=== PATIENT | female | born 1945 | race Caucasian/White ===

== ENCOUNTER 2020-04-12 12:45 | Outpatient (CLI) | payer MEDICARE, SELFPAY ==
--- NOTE | ~2020-04-12 | CT_ITS ---
EXAMINATION: CTA brain carotid EXAM DATE: 04/12/2020 14:28 INDICATION: Episodic headaches. TECHNIQUE: Noncontrast head CT. Spiral CTA of the carotid arteries was performed with intravenous i njection 100 cc of Omnipaque 350. Axial, coronal, sagittal reformatted images reviewed. Additional r eformatted images created on dedicated 3-D workstation. NASCET comparable standard used to assess th e degree of arterial stenosis. Spiral CT angiogram cerebral arteries performed with the same intrave nous injection of contrast. Source images of the brain CTA transferred to dedicated workstation for 3 -D rotational image creation. Coronal, sagittal maximum intensity pixel images also reviewed. The d ose-length product (DLP) for this examination was 1546.93 mGy-cm. The exposure was tailored accordi ng to patient size, and iterative reconstruction (ASIR) was used as additional dose reduction techniq ue. There is no prior study for comparison. FINDINGS: The aortic arch is unremarkable. There is 0% carotid stenosis bilaterally. Carotid siphons are unremarkable. The right vertebral artery is dominant. There is no carotid or vertebral basilar a rterial dissection or fibromuscular dysplasia. There are no cerebral artery aneurysms. 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 The sagittal, transverse and sigmoid sinuses enhance normally, no venous sinus thrombosis. Internal cerebral veins also enhance normally. There is no acute intraparenchymal hemorrhage. No evidence of intraparenchymal brain mass lesion. N o evidence of acute infarction. There is no mass effect or midline shift. There is no obstructive hyd rocephalus suspected. There are no extra-axial collections. There are no calvarial acute fractures. Right-sided cataract surgery. IMPRESSION: 1. No cervical arterial dissection or cerebral artery aneurysm. 2. No carotid stenosis. Reviewed, dictated and finalized at location A.
--- NOTE | ~2020-04-12 | MR_ITS ---
EXAMINATION: MR brain/brain stem wo con EXAM DATE: 04/12/2020 14:01 INDICATION: Episodic headaches. TECHNIQUE: Magnetic resonance imaging (MRI) of the brain/brain stem obtained without contrast. Sagitt al T1, axial diffusion, gradient echo (T2*), T1, T2, FLAIR sequences obtained. There is no prior st udy for comparison. FINDINGS: There are no areas of restricted diffusion to suggest acute infarction. There is no acute hemorrhage seen on the T2*, a hemosiderin sensitive sequence. No intraparenchymal brain mass lesion. There is mild periventricular and subcortical T2/FLAIR signal hyperintensity, nonspecific but probab ly related to small vessel ischemic disease (microangiopathy). There is mild prominence of the sulc i and ventricles related to cerebral atrophy. There are no extra-axial collections. Flow voids are seen in the cerebral arteries on the T2-weighted sequences consistent with their expected patency. The orbits are unremarkable. Soft tissue is unremarkable. IMPRESSION: 1. No acute intracranial findings. 2. Chronic age related findings. Reviewed, dictated and finalized at location A.
[2020-04-13 14:14] LABS: Estimated Glomerular Filt Rate > 60
== END 2020-04-12 12:46 | disposition home or self-care (01) ==
PROVIDERS: PCP Internal Medicine; Visit Provider Psychiatry & Neurology Neurology
DX: R51 Headache (principal)
CPT/HCPCS: 36415; 70496; 70498; 70551; Q9967

== ENCOUNTER 2024-01-07 11:55 | Outpatient (CLI) | payer OTHER, SELFPAY ==
--- NOTE | 2024-01-07 13:17 | ECG_ITS ---
SEE SCANNED COPY FOR CONFIRMED REPORT MTDD
[2024-01-07 13:31] LABS: Basophils Percent Auto 0.7 % (0.2-1.2); Eosinophils Absolute Auto 0.1 K/mm3 (0-0.3); Eosinophils Percent Auto 1.5 % (0-4.4); Hematocrit 37.7 % (37.0-47.0); Lymphocytes Absolute Auto 2.01 K/mm3 (0.9-3.2); Lymphocytes Percent Auto 32.9 % (18.3-44.2); Mean Corpuscular HGB Conc 34.5 g/dl (32-36); Mean Corpuscular Hemoglobin 36.7 pg (26-34); Mean Corpuscular Volume 106.5 fl (80-100); Mean Platelet Volume 9.7 fl (7.4-10.4); Monocytes Absolute Auto 0.6 K/mm3 (0.1-0.6); Neutrophils Absolute Auto 3.4 K/mm3 (1.3-6.7); Neutrophils Percent Auto 55.9 % (45.5-73.1); Platelet Count Result 398 k/mm3 (150-375); Red Blood Count 3.54 M/mm3 (4.2-5.4); Red Cell Distribution Width 13.6 % (11.5-14.5); White Blood Count 6.1 K/mm3 (4.5-10.0)
[2024-01-07 13:40] LABS: Alanine Aminotransferase 20 U/L (6-35); Albumin Level 4.9 g/dL (3.5-5.1); Alkaline Phosphatase 59 U/L (38-126); Anion Gap 7 mmol/L (4-12); Aspartate Amino Transferase 31 U/L (14-36); Bilirubin,Total 0.7 mg/dL (0.2-1.3); Blood Urea Nitrogen 28 mg/dL (7-17); Calcium 10.3 mg/dL (8.4-10.2); Carbon Dioxide 28 mmol/L (22-30); Chloride 104 mmol/L (98-107); Estimated Glomerular Filt Rate 48; Glucose 100 mg/dL (65-110); Potassium 4.4 mmol/L (3.4-5.0); Sodium 139 mmol/L (137-145)
[2024-01-07 13:50] LABS: Prothrombin Time 13.3 Seconds (11.1-14.7)
[2024-01-07 15:51] LABS: Platelet Estimate Increased (Adequate)
[2024-01-07 15:52] LABS: Macrocytosis 1+ (NORMAL); Schistocytes None Seen
== END 2024-01-07 11:56 | disposition home or self-care (01) ==
LOC: ANHSURGERY 12:00
PROVIDERS: PCP Internal Medicine; Visit Provider Urology
DX: N81.4 Uterovaginal prolapse, unspecified (principal); Z01.818 Encounter for other preprocedural examination
CPT/HCPCS: 36415; 80053; 85025; 85610; 85730; 86850; 86900; 86901; 93005

== ENCOUNTER 2024-01-14 02:27 | Day surgery (SDC) | payer OTHER, SELFPAY ==
[2024-01-07 12:32] VITALS: BP 112/59; PULSE 95; RESP 16; TEMP 37; O2SAT 98; BMI 26.9
--- NOTE | 2024-01-07 12:54 | PC.NURSE ---
Report to the Outpatient Waiting Room, entrance under the green pavilion located off [facility], at time _10:00AM on date __01/14/24 . Planned Procedure Time: __12:00PM . Time changes happen often and if your time is changed the preop area will call you the afternoon before. - You and your visitor will be asked to self-screen and do not enter if you have any COVID symptoms. - A mask is optional within the hospital at this time. Patients may have clear liquids (water, carbonated beverages, clear teas, apple juice) until 3 hours prior to surgery with a maximum of 20 ounces. - No food from midnight until time of surgery. Take the following medications with a SIP of water the morning of surgery: ____LEVOTHYROXINE DO NOT STOP ANY OF YOUR OTHER PRESCRIPTION MEDICATIONS PRIOR TO SURGERY ?EXCEPT THE FOLLOWING Medications to discontinue per physician ___HOLD IBUPROFEN 7 DAYS PRE-OP PER DR CURRIE- LAST DOSE 01/06/24 HOLD ALL VITAMINS/SUPPLEMENTS 3 DAYS PRE-OP PER ANESTHESIA- LAST DOSE 01/10/24 Please no make-up, nail czech, hairspray, perfume, deodorant, or body powder the day of surgery. No jewelry (including any body piercings) or valuables the day of surgery, leave them at home. Please take a shower or bath the night before, or the morning of, surgery with an antibacterial soap. Wear comfortable, loose fitting clothing. - Jewelry must be removed prior to entering the operating room. Rings and piercings that are not removed may be cut off. - The hospital will not accept responsibility for valuables. - Please leave all valuables, including medications, at home the day of surgery. If you are going home after surgery, a licensed swing driver must drive you home. - NO public transportation without another adult if you receive anesthesia. - We recommend that an adult stay with you for 24 hours following discharge. - We also recommend that you do not drive, make important decision, drink alcoholic beverages, or take any drugs that were not prescribed by your health care provider for at least 24 hours after your discharge time. Follow any additional instructions given to you from your surgeon. If you or anyone in your household have experienced Covid symptoms in the past week, please notify your surgeon or the nurse liaison at the phone number below for possible testing. Telephone instructions given to ___PATIENT and asked if any additional questions and then verbalized understanding. Patient advised to call surgeon office or pre surgery nurse liaison [phone] if any additional questions.
--- NOTE | 2024-01-09 07:24 | PM.IMHP ---
H&P: HPI History of Present Illness Date/Time: 01/09/24 07:24 Chief Complaint: Uterine prolapse Narrative: 69 old female with 2nd-3rd degree prolapse and cystocele and stress incontinence admitted for robotic supracervical hysterectomy bilateral salpingo-oophorectomy. She will also undergo robotic sacral colpopexy with Dr. Robles possible sling. Risks and benefits reviewed including minutes was , aspiration bleeding transfusion perforation injury to bowel, bladder, ureters, or other internal organs with need for open laparotomy she received the [employer] handout entitled hysterectomy as well as the diff and she handout. She had all questions answered and was encouraged to watch the procedure on the Internet. She had all questions answered and asked to proceed PMFSH Social History Social History Smoking status: Never smoker Alcohol intake: current Living arrangements: alone Spiritual care concerns: No Meds Home Medications and Allergies Home Medications Medication Instructions Recorded Confirmed Type Lactobacillus 40-Bifidobact 60 cap PO DAILY 01/07/24 01/07/24 History 3-S.thermophilus 100 billion cell capsule (Probiotic) cholecalciferol (vitamin D3) 25 4 spray sublingual DAILY 01/07/24 01/07/24 History mcg/spray(1,000 unit/spray) subling spray, susp cranberry 500 mg capsule 500 mg PO DAILY 01/07/24 01/07/24 History cyanocobalamin (vitamin B-12) 25 25 mcg PO DAILY 01/07/24 01/07/24 History mcg tablet cyclosporine 0.05 % eye drops in a 1 drp EACH EYE Q12H 01/07/24 01/07/24 History dropperette (Restasis) fluticasone propionate 50 1 spray intranasal DAILY 01/07/24 01/07/24 History mcg/actuation nasal spray,suspension hydroxyurea 500 mg capsule 500 mg PO HS 01/07/24 01/07/24 History ibuprofen 200 mg capsule 400 mg PO Q6H PRN Pain 01/07/24 01/07/24 History levothyroxine 75 mcg tablet 75 mcg PO QAM 01/07/24 01/07/24 History magnesium 3 tablet PO DAILY 01/07/24 01/07/24 History multivitamin 3 tablet PO DAILY 01/07/24 01/07/24 History turmeric 400 mg capsule 400 mg PO DAILY 01/07/24 01/07/24 History Allergies Allergy/AdvReac Type Severity Reaction Status Date / Time CATS Allergy Mild ITCHY Uncoded 01/07/24 12:07 THROAT, SNEEZING, RUNNY NOSE Exam Const: General: cooperative, healthy appearing and comfortable Nutritional Appearance: average body habitus Orientation/consciousness: oriented to person, oriented to place and oriented to time Resp: Effort & Inspection: normal respiratory effort Cardio: Rate: regular rate Rhythm: regular rhythm Heart sounds: S1 normal heart sound present and S2 normal heart sound present GI: Inspection: normal to inspection : Speculum Exam - Vagina: normal appearance of the vagina (Third degree prolapse seen) Bimanual exam- vagina & uterus: soft Bimanual Exam- Adnexa, other: normal adnexae Assessment and Plan Assessment and plan (1) Uterine prolapse: Code(s): N81.4 - Uterovaginal prolapse, unspecified Status: Acute Plan Robotic supracervical vaginal hysterectomy and bilateral salpingo-oophorectomy Dr. Robles will proceed with sacral colpopexy and sling and as needed
--- NOTE | 2024-01-11 11:08 | P.HP_ITS ---
H&P: HPI History of Present Illness Date/Time: 01/11/24 11:08 Chief Complaint: Pelvic organ prolapse Narrative: She has pelvic organ prolapse without stress incontinence. Presents for surgical intervention Review of Systems Review of Systems: All systems reviewed & are unremarkable except as noted in HPI and below PMFSH Social History Social History Smoking status: Never smoker Alcohol intake: current Living arrangements: alone Spiritual care concerns: No Meds Home Medications and Allergies Home Medications Medication Instructions Recorded Confirmed Type Lactobacillus 40-Bifidobact 60 cap PO DAILY 01/07/24 01/07/24 History 3-S.thermophilus 100 billion cell capsule (Probiotic) cholecalciferol (vitamin D3) 25 4 spray sublingual DAILY 01/07/24 01/07/24 History mcg/spray(1,000 unit/spray) subling spray, susp cranberry 500 mg capsule 500 mg PO DAILY 01/07/24 01/07/24 History cyanocobalamin (vitamin B-12) 25 25 mcg PO DAILY 01/07/24 01/07/24 History mcg tablet cyclosporine 0.05 % eye drops in a 1 drp EACH EYE Q12H 01/07/24 01/07/24 History dropperette (Restasis) fluticasone propionate 50 1 spray intranasal DAILY 01/07/24 01/07/24 History mcg/actuation nasal spray,suspension hydroxyurea 500 mg capsule 500 mg PO HS 01/07/24 01/07/24 History ibuprofen 200 mg capsule 400 mg PO Q6H PRN Pain 01/07/24 01/07/24 History levothyroxine 75 mcg tablet 75 mcg PO QAM 01/07/24 01/07/24 History magnesium 3 tablet PO DAILY 01/07/24 01/07/24 History multivitamin 3 tablet PO DAILY 01/07/24 01/07/24 History turmeric 400 mg capsule 400 mg PO DAILY 01/07/24 01/07/24 History Allergies Allergy/AdvReac Type Severity Reaction Status Date / Time CATS Allergy Mild ITCHY Uncoded 01/07/24 12:07 THROAT, SNEEZING, RUNNY NOSE Exam Narrative: No acute distress Normal breathing Alert orient x3 Anterior wall +3. [place] at -0 Assessment and Plan Assessment and plan (1) Uterine prolapse: Code(s): N81.4 - Uterovaginal prolapse, unspecified Status: Acute Assessment and Plan: Robotic colpopexy understands risks of bleeding, infection, damage surrounding organs, damage to urinary tract, recurrence of prolapse, postoperative voiding dysfunction including incontinence and retention, hip and leg pain, dyspareunia. Agrees to proceed
[2024-01-14] VITALS (10 sets, daily range): BP systolic 114–138; BP diastolic 53–69; PULSE 71–91; RESP 11–18; TEMP 36.1–36.9; O2SAT 93–100
--- NOTE | 2024-01-14 04:41 | WPDHPUPDATE1 ---
History and Physical Update Update Date/Time: 01/14/24 04:41 History and Physical has been reviewed, including an updated exam of the patient. There are NO changes in the patient's condition. Risks, benefits, and alternatives have been discussed and questions answered. Patient agrees to proceed with procedure.
--- NOTE | 2024-01-14 06:47 | WPDHPUPDATE1 ---
History and Physical Update Update Date/Time: 01/14/24 06:47 History and Physical has been reviewed, including an updated exam of the patient. There are NO changes in the patient's condition. Risks, benefits, and alternatives have been discussed and questions answered. Patient agrees to proceed with procedure.
[2024-01-14] MEDS: ACETAMINOPHEN 500 MG TABLET 1000 MG PO (09:32)
[2024-01-14] MEDS: KETOROLAC 15 MG/ML VIAL (*BKC) IV PUSH ×2 (10:14→15:53)
[2024-01-14] MEDS: LACTATED RINGERS 1,000 ML 30 ML IV CONT ×2 (10:14→14:08)
--- NOTE | 2024-01-14 11:14 | P.PNAN_ITS ---
Anes - Initial Pre Proc Eval Procedure: Operation Date: 01/14/24 11:15 Proposed Procedures p Robotic Sacrocolpopexy, Urethral Sling - Steven Robles MD s Robotic Assisted Supracervical Hysterectomy with Bilateral Salpingo- oophorectomy - Xavi Farmer MD Date/Time: 01/14/24 11:14 Surgeon: Steven Robles MD Pre Op Diagnosis: uterovaginal prolapse, cystocele Patient Data Age: 78 Gender: F Height: 1.5 m Weight: 60 kg Last Vital Signs Temp 97 F L 01/14/24 09:38 Pulse 91 01/14/24 09:38 Resp 16 01/14/24 09:38 BP 123/61 01/14/24 09:38 Pulse Ox 99 01/14/24 09:38 O2 Del Method Room Air 01/14/24 09:38 Allergies Allergy/AdvReac Type Severity Reaction Status Date / Time CATS Allergy Mild ITCHY Uncoded 01/14/24 09:30 THROAT, SNEEZING, RUNNY NOSE Home Medications Medication Instructions Recorded Confirmed Type Lactobacillus 40-Bifidobact 60 cap PO DAILY 01/07/24 01/07/24 History 3-S.thermophilus 100 billion cell capsule (Probiotic) cholecalciferol (vitamin D3) 25 4 spray sublingual DAILY 01/07/24 01/07/24 History mcg/spray(1,000 unit/spray) subling spray, susp cranberry 500 mg capsule 500 mg PO DAILY 01/07/24 01/07/24 History cyanocobalamin (vitamin B-12) 25 25 mcg PO DAILY 01/07/24 01/07/24 History mcg tablet cyclosporine 0.05 % eye drops in a 1 drp EACH EYE Q12H 01/07/24 01/07/24 History dropperette (Restasis) fluticasone propionate 50 1 spray intranasal DAILY 01/07/24 01/07/24 History mcg/actuation nasal spray,suspension hydroxyurea 500 mg capsule 500 mg PO HS 01/07/24 01/07/24 History ibuprofen 200 mg capsule 400 mg PO Q6H PRN Pain 01/07/24 01/07/24 History levothyroxine 75 mcg tablet 75 mcg PO QAM 01/07/24 01/07/24 History magnesium 3 tablet PO DAILY 01/07/24 01/07/24 History multivitamin 3 tablet PO DAILY 01/07/24 01/07/24 History turmeric 400 mg capsule 400 mg PO DAILY 01/07/24 01/07/24 History Patient hx anesthesia problems: post op nausea/vomiting Family hx anesthesia problems: none Results Review: All pre-operative results and documents have been reviewed as part of the pre-operative evaluation. [facility] Social History Social History Smoking status: Never smoker Alcohol intake: current Living arrangements: alone Spiritual care concerns: No Anes - Eval Final PreProcedure Day of Procedure 01/14/24 11:14 Patient weight: normal Heart: regular rate and rhythm Lungs: clear to auscultation Airway: Mallampati scale class II Neurological: alert and oriented Last oral intake: >/= 8 hours ASA classification: III Emergent: no Anesthetic plan: proceed Anesthesia type and monitoring: general ETT and standard monitoring Results Review: All pre-operative results and documents have been reviewed as part of the pre- operative evaluation. Informed Consent: The patient's anesthetic plan and its attendant risks and benefits were discussed with the patient/family/POA. Questions were solicited and answers provided to the satisfaction of the patient/family/POA.
[2024-01-14] MEDS: SCOPOLAMINE 1 MG PATCH 1 PATCH TRANSDERM (11:15)
[2024-01-14] MEDS: ceFAZolin 2 GM/D5W 50 ML 2 GM/50 ML BAG IVPB (11:18)
[2024-01-14] MEDS: metroNIDAZOLE 500 MG/ISO 100ML 500 MG/100 ML BAG 100 MG IVPB ×2 (11:30→17:47)
[2024-01-14] MEDS: BUPIVACAINE/EPINEPHRINE 0.5% 30 ML VIAL INFILTRATE (11:59)
--- NOTE | 2024-01-14 12:18 | W.PM.PROC2 ---
Procedure Note - Detailed Date of Procedure 01/14/24 Pre-op Diagnosis uterovaginal prolapse, cystocele Post-op Diagnosis Same Procedure Performed Robotic supracervical hysterectomy and bilateral salpingo-oophorectomy Surgeon Xavi Farmer MD Anesthesia General Indications 78-year-old female with uterine prolapse and cystocele Findings prolapse uterus. Moderate size benign-appearing right ovarian cyst. Description of Procedure Patient was prepped and draped in the normal sterile fashion placed in the dorsal lithotomy position. Under excellent general trach anesthesia weighted speculum placed in the posterior fornix of vagina. Anterior lip of the cervix grasped with single-tooth tenaculum. Man's cannula inserted attached to the single-tooth to be used later for uterine manipulation. After emptying the bladder clear urine with a 16 Far[place] catheter the weighted speculum was removed the gloves were changed. Dr. Robles proceeded to the patient please see that operative report for full details. Attention was turned to the skilled nursing facility counselor. The left round ligament was grasped, burned, cut. Anteriorly a bladder flap was formed by sharply dissecting the peritoneum and reflecting the bladder caudally away from the cervix and uterus. This was brought to the opposite round ligament was clamped, burned, cut. The right infundibulopelvic structure was skeletonized to remove the right ovary and tube clamped, burned, cut and brought to the level of previously round ligament. In similar fashion and there appeared to be only in the above ovarian tissue on the left. The infundibulopelvic structure was skeletonized clamping burning cutting ovary this a level of previously cut round ligament. The cardinal broad ligaments on left proceeded skeletonized clamping burning and cutting and drainage down lateral edge until the uterine vessels could be seen on the left these were individually clamped, burned, cut. Similarly on the right, the end cardinal broad ligaments were skeletonized clamping burning cutting bringing this down the lateral edge of the uterus and cervix until the large uterine vessel could be seen on the right these were individually clamped, burned, cut. A supracervical incision made in the uterus ovaries and tubes placed in an Endo-Catch. Blood loss was 25cc of this port. Dr. Shultz proceeded with the sacral colpopexy and his portion. Estimated Blood Loss 25 Drains No Packing No Pathology Yes Complications No immediate complications Condition Stable Disposition No change
--- NOTE | 2024-01-14 13:56 | P.OP_ITS ---
Procedure Note - Detailed Date of Procedure 01/14/24 Pre-op Diagnosis uterovaginal prolapse, cystocele Post-op Diagnosis Same Procedure Performed Robotic assisted laparoscopic sacral colpopexy Cystoscopy Surgeon Steven Robles MD Anesthesia General Indications A woman with uterine prolapse without stress incontinence. She desires surgical correction. She is here for the above. She understands risks of bleeding, infection, diskitis, damage to surrounding organs, bowel injury, bowel obstruction, mesh related complications including exposure and extrusion, postoperative voiding dysfunction including incontinence and retention, need for ancillary procedures, dyspareunia, recurrence of prolapse, and other perioperative intraoperative postoperative complications. She agrees to proceed. Findings See below Description of Procedure She was correctly identified. Informed consent obtained. She from the operating room. She was given general anesthesia. She was given appropriate perioperative antibiotics. She was placed a low lithotomy position. Pressure points were padded. A time-out performed. I marked out the skin 3 fingerbreadths cephalad to the umbilicus. I anesthetized the skin. I incised the skin. I dissected down to the fascia. I grasped the fascia with Ledy clamps. I entered the fascia sharply in a Sales type technique. I placed sutures for later fascial closure. I placed a midline trocar. I examined the abdomen. There is no sign of any injury. Under direct vision I placed 2 additional trocars in the right upper quadrant and 2 additional trocars the left upper quadrant. She was placed in steep Trendelenburg. The robot was docked. Her dirt bike racer completed their portion of the procedure. Please see that operative report for details. I then sat at the console. The Sizer in the vagina created plane on the anterior and posterior vaginal wall. I took great care not to injure the vagina, bladder, or rectum. I introduced the mesh into the abdomen. I sewed the anterior leaflet of mesh on the anterior vaginal wall. I sewed the posterior leaflet of mesh on the posterior vaginal wall. This was done with several sutures of 2 0 [place]. I reflected the colon laterally. I opened the posterior peritoneum over the sacral promontory. I carried this into the cul-de-sac. I freed up the edges for later retroperitonealization. I located the anterior longitudinal ligament the sacrum. I cleaned off all fatty tissues. I then tensioned my mesh appropriately. I did a vaginal exam the bedside. I assured prolapse reduction without undue tension. I then sewed the proximal leaflet of mesh onto the anterior longitudinal ligament of the sacrum with several sutures of 2 0 [place]. I then used a 2 0 Monocryl to completely and meticulously retroperitonealized all mesh. I allowed the colon to go back to its normal anatomic location. There is no sign of any impingement. The specimen was then removed. All ports removed. Fascia was tied down. An additional suture was placed fully close the fascia. Skin was closed with Monocryl and surgical glue. I then performed cystoscopy. There was no tumors or surgical artifact. Both ureters were seen to excrete clear yellow urine. There is no surgical artifact in the bladder or urethra. I cut the excess sling material. Close incision with glue. She was awakened and transferred to PACU in stable condition. Implants Sacral colpopexy mesh Estimated Blood Loss 25 Packing No Pathology None sent Complications No immediate complications Condition Stable Disposition PACU
[2024-01-14] MEDS: fentaNYL CITRATE INJ (*CRX) 100 MCG/2 ML VIAL 25 MCG IV PUSH (14:50)
--- NOTE | 2024-01-14 15:37 | OBPPTRN ---
Patient transferred to post room #287 via stretcher. Oriented to unit, room, information board, rooming in, admission packet and security measures. Patient verbalizes understanding.
[2024-01-14] MEDS: ACETAMINOPHEN 325 MG TABLET 650 MG PO (15:54)
[2024-01-14] MEDS: KCL 20 MEQ/D5/0.45% SOD CHL 1,000 ML 100 ML IV CONT (15:54)
[2024-01-14] MEDS: HYDROcodone/acetaminophen (*CRX) 5-325 MG TABLET 1 TAB PO (17:51)
[2024-01-14] MEDS: ceFAZolin 1 GM/NS 50 ML 1 GM/50 ML BAG IVPB (18:59)
[2024-01-14] MEDS: cycloSPORINE 0.4 ML OPHTH SOLUTION 1 DROP EACH EYE (21:06)
[2024-01-15 00:02] VITALS: BP 95/59; PULSE 72; RESP 18; TEMP 36.8; O2SAT 98
[2024-01-15] MEDS: metroNIDAZOLE 500 MG/ISO 100ML 500 MG/100 ML BAG 100 MG IVPB (02:03)
[2024-01-15] MEDS: ceFAZolin 1 GM/NS 50 ML 1 GM/50 ML BAG IVPB (03:23)
[2024-01-15] MEDS: HYDROcodone/acetaminophen (*CRX) 5-325 MG TABLET 1 TAB PO (03:33)
[2024-01-15 03:44] VITALS: BP 101/44; PULSE 63; RESP 18; TEMP 37.4; O2SAT 98
--- NOTE | 2024-01-15 06:48 | PM.GYNPNOP ---
PROSTHETIST - A/P Postoperative Procedures: Procedures Operation Date: 01/14/24 11:15 Actual Procedure Side Surgeon p Robotic Sacrocolpopexy Steven Robles MD s Robotic Assisted Supracervical Hysterectomy with Bilateral Salpingo-oophorectomy Xavi Framer MD Postoperative day: 1 Postoperative status: doing well Postoperative plan: routine post-op care, see orders, ambulate, advance diet, voiding trials and discharge Time Spent With Patient Time: Total time spent is greater than 50% in coordination of care (as documented) at patient's floor/unit and/or counseling patient: Time with patient: less than 15 minutes PROSTHETIST- PN:Subj Post-Op Subjective Date/time seen: 01/15/24 06:48 Subjective: patient reports feeling better, patient desires discharge, pain is well controlled and patient is tolerating oral intake Exam Const: General: cooperative, healthy appearing and comfortable Nutritional Appearance: average body habitus Resp: Effort & Inspection: normal respiratory effort Cardio: Rate: regular rate Rhythm: regular rhythm Heart sounds: S1 normal heart sound present and S2 normal heart sound present GI: Inspection: normal to inspection and incision (cdi) PROSTHETIST - PN: Obj Data Vital Signs Vital Signs: Vital Signs - 24 hr 01/14/24 09:38 01/14/24 14:08 01/14/24 14:20 Temperature 97 F L 97.6 F Pulse Rate 91 82 78 Respiratory Rate 16 11 L 16 Blood Pressure 123/61 114/54 L 123/57 L Pulse Oximetry 99 97 100 Oxygen Delivery Room Air Simple Face Mask Simple Face Mask Oxygen Flow Rate 6 8 01/14/24 14:11 01/14/24 14:35 01/14/24 14:50 Temperature 97.1 F L 97.4 F L Pulse Rate 80 73 71 Respiratory Rate 14 15 12 Blood Pressure 133/69 128/65 Pulse Oximetry 99 100 94 Oxygen Delivery Simple Face Mask Simple Face Mask Room Air Oxygen Flow Rate 8 8 01/14/24 15:05 01/14/24 15:20 01/14/24 15:50 Temperature 97.6 F 97.6 F 98.1 F Pulse Rate 76 76 82 Respiratory Rate 17 18 16 Blood Pressure 126/65 130/64 138/69 Pulse Oximetry 93 99 98 Oxygen Delivery Room Air Room Air Oxygen Flow Rate 01/14/24 20:18 01/14/24 20:18 01/15/24 00:02 Temperature 98.5 F 98.2 F Pulse Rate 84 84 72 Respiratory Rate 16 16 18 Blood Pressure 116/53 L 95/59 L Pulse Oximetry 100 100 98 Oxygen Delivery Room Air Oxygen Flow Rate 01/15/24 00:02 01/15/24 03:44 01/15/24 03:44 Temperature 99.4 F Pulse Rate 72 63 63 Respiratory Rate 18 18 18 Blood Pressure 101/44 L Pulse Oximetry 98 98 98 Oxygen Delivery Room Air Room Air Oxygen Flow Rate Intake/Output Intake/Output: Intake & Output 01/12/24 01/13/24 01/14/24 01/15/24 23:59 23:59 23:59 23:59 Intake Total 550 600 Output Total 50 450 Balance 500 150 Meds/Results Medications: Active Medications Generic Name Dose Route Start Last Admin Trade Name Freq PRN Reason Stop Dose Admin Acetaminophen 650 mg 01/14/24 15:36 01/14/24 15:54 Acetaminophen 325 Mg Tablet PO 650 mg Q4H PRN Administration Mild Pain (1-3) or Fever Hydrocodone Bitart/Acetaminophen 1 tab 01/14/24 15:36 01/15/24 03:33 Hydrocodone/Acetaminophen (*Crx) 5-325 Mg Tablet PO 1 tab Q4H PRN Administration Pain Rated 4-5 Cephalexin HCl 500 mg 01/15/24 17:00 Cephalexin 500 Mg Capsule PO QID LUISA Cyclosporine 1 drop 01/14/24 21:00 01/14/24 21:06 Cyclosporine 0.4 Ml Ophth Solution EACH EYE 1 drop Q12HR LUISA Administration Diphenhydramine HCl 25 mg 01/14/24 15:36 Diphenhydramine Hcl Inj 50 Mg/Ml Vial IV PUSH Q6H PRN Itching Docusate Sodium 100 mg 01/15/24 09:00 Docusate Sodium 100 Mg Capsule PO DAILY [facility] Enoxaparin Sodium 30 mg 01/15/24 09:00 Enoxaparin 30 Mg/0.3 Ml Syringe SUB-Q DAILY [facility] Fluticasone Propionate 1 spray 01/15/24 09:00 Fluticasone Propionate 0.05% Na Spr 16 Gm Btl (*Bkc) NASAL DAILY [facility] Hydroxyurea 500 mg 01/14/24 21:00 01/14/24 21:05 Hydroxyurea (*Sammie
--- NOTE | 2024-01-15 06:51 | P.DS_ITS ---
DS: Admitting Diagnosis Discharge Date 01/15/2024 Admitting Diagnosis uterine prolapse DS: Discharge Diagnosis Discharge Diagnosis (1) Uterine prolapse: Code(s): N81.4 - Uterovaginal prolapse, unspecified Status: Acute DS: Summary Hospital Course Reason for hospitalization: patient was admitted for robotic supracervical hysterectomy bilateral salpingo- oophorectomy and sacral colpopexy. Hospital Course: Patient's hospital course unremarkable. She remained afebrile. She was up, voiding without difficulty, eating regular diet, ambulating, generally without complaints. Time Spent with Patient Time attestation: Total time spent providing and/or coordinating discharge services: Exam Const: General: cooperative, healthy appearing and comfortable Nutritional Appearance: average body habitus Orientation/consciousness: oriented to person, oriented to place and oriented to time Resp: Effort & Inspection: normal respiratory effort Cardio: Rate: regular rate Rhythm: regular rhythm Heart sounds: S1 nor mal heart sound present and S2 normal heart sound present GI: Inspection: normal to inspection and incision ( Wounds are clean dry and intact) DS: Data Data Completed and Pending Pending studies at discharge: Pending at discharge 01/14/24 13:46 Surgical [PTH] Routine Discharge Plan Discharge Patient Disposition: Home, Self-Care Discharge Instructions: No lifting >20lb, exercise for 6 weeks No tub bath or pool for 2 weeks no intercourse 6 weeks Remove the Scopolamine patch that was placed behind your ear in 72 hours or less. Wash your hands after touching. Stand Alone Forms: General Discharge Instructions Follow-up/Referrals: Steven Robles MD [Physician] - (6 weeks) Discharge Medications: New docusate sodium [Colace] 100 mg capsule 100 mg PO BID Qty: 40 0RF hydrocodone-acetaminophen 5-325 mg tablet 1 tablet PO Q6H PRN (Reason: pain) Qty: 20 0RF Continued multivitamin Tablet 3 tablet PO DAILY hydroxyurea 500 mg capsule 500 mg PO HS levothyroxine 75 mcg tablet 75 mcg PO QAM cranberry 500 mg Capsule 500 mg PO DAILY Rx Instructions: administer with meals cyanocobalamin (vitamin B-12) 25 mcg Tablet 25 mcg PO DAILY Rx Instructions: VITAMIN B12/[employer] cyclosporine [Restasis] 0.05 % Dropperette 1 drp EACH EYE Q12H Probiotic 100 billion cell Capsule 60 cap PO DAILY turmeric 400 mg Capsule 400 mg PO DAILY ibuprofen 200 mg Capsule 400 mg PO Q6H PRN (Reason: Pain) cholecalciferol (vitamin D3) 25 mcg/spray 1,000unit/spray [place],Suspension 4 spray SUBLINGUAL DAILY fluticasone propionate 50 mcg/actuation [place],Suspension 1 spray INTRANASAL DAILY Rx Instructions: administer into each nostril magnesium Tablet 3 tablet PO DAILY Rx Instructions: DISSOLVES UNDER TONGUE
[2024-01-15] MEDS: LEVOTHYROXINE SODIUM 75 MCG TABLET PO (07:24)
[2024-01-15 07:50] VITALS: BP 98/56; PULSE 65; RESP 18; TEMP 36.8; O2SAT 100
--- NOTE | 2024-01-15 08:44 | WPDANESPN ---
Anes - Prog Note Post-Op Date/Time: 01/15/24 08:44 Cardiovascular status: normal Respiratory status: normal Airway patency: baseline Mental status: baseline Post-Op hydration status: normal Vital Signs: Last Vital Signs Temp 37.4 C 01/15/24 03:44 Pulse 63 01/15/24 03:44 Resp 18 01/15/24 03:44 BP 101/44 L 01/15/24 03:44 Pulse Ox 98 01/15/24 03:44 O2 Del Method Room Air 01/15/24 03:44 O2 Flow Rate 8 01/14/24 14:35 Pain Score (VAS): 3/10 I/O: Intake & Output 01/14/24 01/15/24 01/15/24 23:59 07:59 15:59 Intake Total 150 600 Output Total 450 Balance 150 150 Post-procedural complaints: none Patient Feedback: Patient satisfied with anesthetic care.
[2024-01-15] MEDS: DOCUSATE SODIUM 100 MG CAPSULE PO (09:27)
[2024-01-15] MEDS: FLUTICASONE PROPIONATE 0.05% NA SPR 16 GM BTL (*BKC) 1 SPRAY NASAL (09:27)
[2024-01-15] MEDS: ACETAMINOPHEN 325 MG TABLET 650 MG PO (09:31)
[2024-01-15] MEDS: ENOXAPARIN 40 MG/0.4 ML SYRINGE SUB-Q (09:35)
== END 2024-01-15 12:30 | disposition home or self-care (01) ==
LOC: ANHSURGERY 15:36 → ANHOB2 15:38
PROVIDERS: Obstetrics & Gynecology; PCP Internal Medicine; Visit Provider Urology
PROC: (CPT 57425; principal; 2024-01-14 11:15)
PROC: 0UT94ZZ Resection of Uterus, Percutaneous Endoscopic Approach (ICD-10-PCS; CPT 57425; 2024-01-14 11:15)
DX: N81.4 Uterovaginal prolapse, unspecified (principal); N84.0 Polyp of corpus uteri; N83.8 Other noninflammatory disorders of ovary, fallopian tube and broad ligament; D27.0 Benign neoplasm of right ovary; N83.292 Other ovarian cyst, left side
CPT/HCPCS: 57425; 58542; S2900 ×2; 88307; 99199; A9270; C1781; J0690; J1100; J1170; J1650; J1836; J1885; J2405; J2704; J3010; J3480; J7030; J7120

== ENCOUNTER 2024-01-15 12:53 | Outpatient (CLI) | payer OTHER, SELFPAY ==
[2024-01-15 14:01] LABS: Basophils Percent Auto 0.2 % (0.2-1.2); Eosinophils Percent Auto 0.2 % (0-4.4); Hematocrit 32.9 % (37.0-47.0); Hemoglobin 11.2 g/dL (12.0-15.0); Immature Granulocyte Absolute 0.04 K/mm3 (0.00-0.031); Immature Granulocyte Percent A 0.3 % (0-0.5); Lymphocytes Absolute Auto 1.86 K/mm3 (0.9-3.2); Lymphocytes Percent Auto 15.6 % (18.3-44.2); Mean Corpuscular Hemoglobin 36.7 pg (26-34); Mean Corpuscular Volume 107.9 fl (80-100); Mean Platelet Volume 9.9 fl (7.4-10.4); Monocytes Absolute Auto 1.1 K/mm3 (0.1-0.6); Monocytes Percent Auto 8.8 % (2.6-8.5); Neutrophils Absolute Auto 8.9 K/mm3 (1.3-6.7); Neutrophils Percent Auto 74.9 % (45.5-73.1); Platelet Count Result 358 k/mm3 (150-375); Red Blood Count 3.05 M/mm3 (4.2-5.4); Red Cell Distribution Width 13.7 % (11.5-14.5); White Blood Count 11.9 K/mm3 (4.5-10.0)
[2024-01-15 15:26] LABS: Macrocytosis 1+ (NORMAL); Platelet Estimate Adequate (Adequate); Schistocytes None Seen
== END 2024-01-15 12:54 | disposition home or self-care (01) ==
LOC: ANHLAB 12:57
PROVIDERS: PCP Internal Medicine; Visit Provider Nurse Practitioner Family
DX: D47.1 Chronic myeloproliferative disease (principal)
CPT/HCPCS: 36415; 85025